=== PATIENT | female | born 1975 | race Two or more races ===

== ENCOUNTER 2024-09-12 13:34 | Outpatient (REF) | payer OTHER, SELFPAY ==
--- OUTSIDE RECORDS SUMMARY | 2024-09-12 14:35 | XMS_ITS | Clinical Summary ---
Author Organization [facility] Address [address] [place] [address] Care Team Providers Care Net Finisher Name Role Phone Jose Ta MD Primary Care Provider [phone] Allergies No known active allergies Active Problems Problem Noted Date Diagnosed Date Breast lump in female 05/23/2018 Hyperthyroidism 08/05/2016 Dysfunctional uterine bleeding 06/01/2016 Tubulovillous adenoma of colon 05/27/2016 Polycystic ovarian syndrome 03/19/2011 Encounters Date Type Department Care Team Description 06/12/2024 9:30 AM EST Office Visit Internal Medicine - [address] [place] [address] Jose Ta MD Palpitations (Primary Dx); Memory loss from Last 3 Months Immunizations Name Administration Dates Next Due Hepatitis B ([id number]-S-Rjxya , Recombivax HB-Adult) 19yo and older 08/13/2009 Tdap Tetanus diptheria acell ular pertussis (Boostrix; Adacel) 7yo and older 06/24/2009 Surgical History Surgery Date Site/Laterality Comments MULTIPLE TOOTH EXTRACTIONS PROCEDURE: HISTORICAL DENTAL EXTRACTION COLONOSCOPY PROCEDURE: HISTORICAL COLONOSCOPY UPPER GASTROINTESTINAL ENDOSCOPY PROCEDURE: UPPER GI ENDOSCOPY/EXAM Medical History Medical History Date Comments Dysfunctional uterine bleeding 06/01/2016 D X:Dysfunctional uterine bleeding Hyperthyroidism 08/05/2016 DX:Hyperthyroidi sm Polycystic ovarian syndrome 03/19/2011 DX:P olycystic ovarian syndrome Tubulovillous adenoma of colon 05/27/2016 D X:Tubulovillous adenoma of colon Social History Tobacco Use Types Packs/Day Years Used Date Smoking Tobacco: Never Smokeless Tobacco: Never Alcohol Use Standard Drinks/Week Comments Yes 0 (1 standard drink = 0.6 oz pur e alcohol) Financial Risk Answer Date Recorded How hard is it for you to pa y for the very basics like food, housing, medical care, and air conditioning / heating? Hard 05/22/2024 Comments Unknown Sex and Gender Information Value Date Recorded Sex Assigned at Not on file Legal Sex Female 12:21 PM EST Gender Identity Not on file Sexual Orientation Not on file Obstetrics History Last Filed Vital Signs Vital Sign Reading Time Taken Comments Blood Pressure 128/68 06/12/2024 9:32 AM EST Pulse 64 06/12/2024 9:32 AM EST Temperature - - Respiratory Rate - - Oxygen Saturation 98% 06/12/2024 9:32 AM EST Inhaled Oxygen Concentration - - Weight 69.4 kg (153 lb) 06/12/2024 9:32 AM EST Height 152.4 cm (5') 12/14/2023 8:59 AM EDT Body Mass Index 29.88 12/14/2023 8:59 AM EDT Plan of Treatment Health Maintenance Due Date Last Done Comments Breast Cancer Screening 1977 Cervical Cancer Screening: P ap Smear 1998 Hepatitis B Vaccines (2 of 3 - 19+ 3-dose series) 09/10/2009 08/13/2009 DTaP,Tdap,and Td Vaccines (2 - Td or Tdap) 06/24/2019 06/24/2009 Colorectal Cancer Screening: Colonoscopy 06/23/2022 HIV Screening 06/23/2022 Hepatitis C Screening 06/23/2022 COVID-19 Vaccine (3 - 2023-2 5 season) 2024 06/21/2022, 12/11/2020 Influenza Vaccine (#1) 2024 08/05/2012 Depression Screening 05/22/2025 05/22/2024 Social Influencers of Health Screening 05/22/2025 05/22/2024 Cholesterol Screening (Lipid Panel) 12/13/2028 12/14/2023, 12/14/2023 HIB Vaccines Aged Out No longer eligi ble based on patient's age to complete this topic HPV Vaccines Aged Out No longer eligi ble based on patient's age to complete this topic Hepatitis A Vaccines Aged Out No long er eligible based on patient's age to complete this topic IPV Vaccines Aged Out No longer eligi ble based on patient's age to complete this topic MMR Vaccines Aged Out No longer eligi ble based on patient's age to complete this topic Meningococcal ACWY Vaccine Aged Out N o longer eligible based on patient's age to complete this topic Meningococcal B Vacine Aged Out No lo nger eligible based on patient's age to complete this topic Pneumococcal Vaccine: Pediatrics (0 to 5 Years) and At-Risk Patients (6 to 64 Years) Aged Out No longer eligible b ased on patient's age to complete this topic RSV Immunization Patients Under 20 months Aged Out No longer eligible b ased on patient's age to complete this topic Varicella Vaccines Aged Out No longer eligible based on patient's age to complete this topic Procedures Procedure Name Priority Date/Time Associated Diagnosis Comments LIPID PANEL Routine 12/14/2023 from Last 3 Months or Most Recently Relevant to Health Maintenance Results * (ABNORMAL) Lipid panel (12/14/2023) LDL/HDL Ratio 5(A) 0 - 4 Triglycerides 107 0 - 150 mg/dL Cholesterol 192 0 - 200 mg/dL HDL 40 >=40 mg/dL LDL Cholesterol 131(A) 0 - 100 mg/dL Blood Venous blood specimen / Unknown [facility] Provider LAB BLOOD ORDERABLES Sarah l Result from Last 3 Months or Most Recently Relevant to Health Maintenance Insurance [employer] Care Teams Net Finisher Relationship Specialty Start Date End Date Jose Ta MD PCP - General Internal Medicine 05/20/18
[2024-09-12 15:14] LABS: Vitamin B12 525 pg/mL (200-900)
== END 2024-09-12 13:35 | disposition home or self-care (01) ==
LOC: HO.LAB 13:34
PROVIDERS: PCP Internal Medicine; Visit Provider Psychiatry & Neurology Neurology
DX: G47.33 Obstructive sleep apnea (adult) (pediatric) (principal)
CPT/HCPCS: 36415; 82607

== ENCOUNTER → 2024-11-20 15:39 | Outpatient (REF) | payer OTHER, SELFPAY ==
--- OUTSIDE RECORDS SUMMARY | 2024-11-20 18:28 | XMS_ITS | Clinical Summary ---
Author Organization [facility] Address [address] [place] [address] Care Team Providers Care Trauma Coordinator Name Role Phone Jose Ta MD Primary Care Provider [phone] Allergies No known active allergies Active Problems Problem Noted Date Diagnosed Date Breast lump in female 05/23/2018 Hyperthyroidism 08/05/2016 Dysfunctional uterine bleeding 06/01/2016 Tubulovillous adenoma of colon 05/27/2016 Polycystic ovarian syndrome 03/19/2011 Immunizations Name Administration Dates Next Due Hepatitis B ([id number]-[id number] , Recombivax HB-Adult) 19yo and older 08/13/2009 [...] 06/23/2022 Hepatitis C Screening 06/23/2022 COVID-19 Vaccine ( - 2023-2 5 season) 2024 06/21/2022, 12/11/2020 Influenza Vaccine (Season Ended) 2025 08/05/2012 Depression Screening 05/22/2025 05/22/2024 Social Influencers [...] age to complete this topic Meningococcal B Vaccine Aged Out No l onger eligible based on patient's age to complete [...] mg/dL Blood Venous blood specimen / Unknown [facility] Provider LAB BLOOD ORDERABLES Sarah l Result from Last 3 Months or Most Recently Relevant to Health Maintenance Insurance Care Teams Trauma Coordinator Relationship Specialty Start Date End Date Jose Ta MD PCP - General Internal Medicine 05/20/18
== END ==
LOC: HO.SL 15:39
PROVIDERS: PCP Internal Medicine; Visit Provider Psychiatry & Neurology Neurology
DX: G47.33 Obstructive sleep apnea (adult) (pediatric) (principal)
CPT/HCPCS: 95806

== ENCOUNTER → 2024-11-20 19:00 | Outpatient (BNV) | payer OTHER, SELFPAY | PROVIDERS: PCP Internal Medicine; Visit Provider Internal Medicine | DX: G47.33 Obstructive sleep apnea (adult) (pediatric) (principal) | CPT/HCPCS: 95806 ==